=== PATIENT | male | born 1990 | race Caucasian/White ===

== ENCOUNTER 2024-03-10 13:38 | Emergency (ER) | payer OTHER ==
[~2024-03-10] VITALS: Ht 175.3 cm; Wt 108.9 kg
[2024-03-10] MEDS ORDERED: FentaNYL Citrate 50 MCG/ML 2 ML Injection ONE (13:45)
[2024-03-10] MEDS ORDERED: NS 1,000 ML IV SCH (13:50)
[2024-03-10] MEDS ORDERED: HYDROmorphone HCl/Pf 1MG SYR IV ONE (13:50)
[2024-03-10] MEDS ORDERED: Diphth,Pertuss(Acell),Tet Vac 0.5 ML VIAL IM ONE (13:50)
[2024-03-10 14:11] LABS: BASOPHILS ABSOLUTE AUTO 0.04 K/mm3 (0.00-0.23); BASOPHILS PERCENT AUTO 1 % (0-2); EOSINOPHILS ABSOLUTE AUTO 0.25 K/mm3 (0.00-0.68); EOSINOPHILS PERCENT AUTO 3 % (0-6); Hematocrit 43.9 % (37.0-53.0); Hemoglobin 15.4 g/dL (13.5-17.5); IMMATURE GRAN ABSOLUTE AUTO 0.02 K/mm3 (0.00-0.10); IMMATURE GRAN PERCENT AUTO 0 % (0-1); LYMPHOCYTES ABSOLUTE AUTO 2.44 K/mm3 (0.84-5.20); LYMPHOCYTES PERCENT AUTO 30 % (21-46); MONOCYTES ABSOLUTE AUTO 0.66 K/mm3 (0.16-1.47); MONOCYTES PERCENT AUTO 8 % (4-13); Mean Corpuscular HGB 30.3 pg (26.0-34.0); Mean Corpuscular HGB Conc 35.1 g/dL (31.5-36.5); Mean Corpuscular Volume 86 fL (80-100); Mean Platelet Volume 12.7 fL (9.1-12.4); NEUTROPHILS ABSOLUTE AUTO 4.85 K/mm3 (1.96-9.15); NEUTROPHILS PERCENT AUTO 59 % (41-73); Platelet Count 202 K/mm3 (150-400); RDW Coefficient Variation 12.1 % (11.7-14.2); RDW Standard Deviation 38.9 fL (35.1-46.3); Red Blood Cell Count 5.08 M/mm3 (4.30-5.90); White Blood Cell Count 8.26 K/mm3 (4.00-11.30)
[2024-03-10 14:20] LABS: Prothrombin Time Results 10.7 Sec (9.7-11.5)
[2024-03-10] MEDS ORDERED: Ketorolac Tromethamine 30mg Vial IV ONE (14:20)
[2024-03-10 14:35] LABS: Alanine Aminotransfer (ALT/SGP 43 U/L (12-78); Albumin, Blood 4.1 g/dL (3.4-5.0); Albumin/Globulin Ratio 1.3 (0.8-1.8); Alk Phos 104 U/L (50-136); Anion Gap 6 mmol/L (3-11); Aspartate Aminotrans (AST/SGOT 25 U/L (12-37); Bilirubin, Total 0.5 mg/dL (0.1-1.0); Blood Urea Nitrogen 15 mg/dL (8-24); Bun/Creatinine Ratio 15.4 (12.0-20.0); CO2, Blood 29 mmol/L (21-32); Calcium, Blood 9.7 mg/dL (8.5-10.1); Chloride, Blood 109 mmol/L (98-108); Creatinine, Blood 0.97 mg/dL (0.60-1.20); Ethanol (Alcohol), Blood, Med <3 mg/dL; Globulin, Blood 3.1 g/dL (2.2-4.0); Glomerular Filtration Rate 107 (60-); Glucose, Blood 123 mg/dL (70-99); Potassium, Blood 4.3 mmol/L (3.5-5.5); Sodium, Blood 140 mmol/L (136-145); Total Protein, Blood 7.2 g/dL (6.4-8.2)
[2024-03-10] MEDS ORDERED: FentaNYL Citrate 50 MCG/ML 2 ML Injection IV PRN (14:50)
[2024-03-10] MEDS ORDERED: Lidocaine 5% Ointment 35 gm TOP ONE (15:25)
[2024-03-10 16:18] LABS: Source, Urine Clean Catch
[2024-03-10 16:27] LABS: Appearance, Urine Clear (Clear); Bilirubin, Urine Neg (Neg); Blood, Urine Neg (Neg); Color, Urine Yellow (P-Yellow); Glucose Qualitative, Urine Neg (Neg); Ketones, Urine Neg (Neg); Leukocyte Esterase, Urine Neg (Neg); Nitrite, Urine Neg (Neg); Protein, Urine 1+ (Neg); Specific Gravity, Urine 1.015 (1.003-1.022); Urobilinogen, Urine NORM (Normal)
[2024-03-10] MEDS ORDERED: Morphine Sulfate 4 MG/1 ML Injection IV ONE (16:35)
[2024-03-10 17:04] LABS: U Amphetamine Screen Not Detected; U Barbituate Screen Not Detected; U Benzodiazapine Screen Not Detected; U Buprenorphine Screen Not Detected; U Cannabinoids Screen Not Detected; U Cocaine Screen Not Detected; U Methadone Screen Not Detected; U Methamphetamine Screen Not Detected; U Opiates Screen DETECTED; U Oxycodone Screen Not Detected; U Phencyclidine Screen Not Detected
== END 2024-03-10 17:30 | disposition short-term general hospital (02) ==
LOC: ER 13:38
PROVIDERS: Student in an Organized Health Care Education/Training Program
DX: T20.37XA Burn of third degree of neck, initial encounter (principal); T20.312A Burn of third degree of left ear [any part, except ear drum], initial encounter; T31.0 Burns involving less than 10% of body surface; S02.651A Fracture of angle of right mandible, initial encounter for closed fracture; W22.8XXA Striking against or struck by other objects, initial encounter; Z88.0 Allergy status to penicillin; Z88.8 Allergy status to other drugs, medicaments and biological substances
CPT/HCPCS: 70450; 70486; 70498; 71045; 72125; 80053; 83690; 85025; 85610; 90471; 90715; 96374-59; 96375-59; 96376-59; 99285-25; J1170; J1885; J2270; J3010; J7030; Q9967

== ENCOUNTER 2024-03-22 14:03 | Day surgery (SDC) | payer OTHER | END 2024-03-22 22:43 | disposition home or self-care (01) | LOC: WOUND 14:03 | DX: T20.30XA Burn of third degree of head, face, and neck, unspecified site, initial encounter (principal); T86.829 Unspecified complication of skin graft (allograft) (autograft); Z88.0 Allergy status to penicillin; Z88.8 Allergy status to other drugs, medicaments and biological substances | CPT/HCPCS: G0463 ==